=== PATIENT | male | born 1970 | race Hispanic/Latino ===

== ENCOUNTER 2018-11-08 18:56 | Inpatient (IN) | payer OTHER ==
[~2018-11-08] VITALS: Ht 172.7 cm; Wt 103.9 kg
[2018-11-08] MEDS ORDERED: ENOXAPARIN SODIUM 100 MG/1 ML SQ ONE (20:20)
[2018-11-08 20:21] LABS: BASOPHILS % (AUTO) 0.8 % (0.0-5.0); EOSINOPHILS % (AUTO) 0.9 % (0.0-8.0); LYMPHOCYTES % (AUTO) 37.7 % (21.0-51.0); MEAN CORPUSCULAR HEMOGLOBIN 29.4 pg (27.0-33.0); MEAN CORPUSCULAR HGB CONC 34.4 g/dL (32.0-36.0); MEAN CORPUSCULAR VOLUME 85.4 fL (79-99); MONOCYTES % (AUTO) 5.1 % (3.0-13.0); NEUTROPHILS % (AUTO) 55.5 % (40.0-77.0); NUCLEATED RED BLOOD CELLS 0.1 % (0.0-0.19); PLATELET COUNT (AUTO) 136 K/uL (130-400); RED BLOOD CELL COUNT(AUTO) 5.15 MIL/uL (4.50-6.20); RED CELL DISTRIBUTION WIDTH 13.4 % (11.0-15.5); WHITE BLOOD COUNT (AUTO) 8.8 K/uL (4.8-10.8)
[2018-11-08 20:22] LABS: APPEARANCE,URINE CLEAR (CLEAR); BILIRUBIN,URINE NEGATIVE (NEGATIVE); COLOR,URINE YELLOW (YELLOW); GLUCOSE, URINE (UA) >=1000 mg/dL (NEGATIVE); KETONES,URINE NEGATIVE (NEGATIVE); LEUKOCYTE ESTERASE ,URINE SMALL (NEGATIVE); NITRATE,URINE NEGATIVE (NEGATIVE); OCCULT BLOOD,URINE TRACE-INTACT (NEGATIVE); PROTEIN,URINE NEGATIVE (NEGATIVE)
[2018-11-08 20:31] LABS: AMPHET/METH SCREEN,URINE NEGATIVE (NEGATIVE); BARBITURATE SCREEN, URINE NEGATIVE (NEGATIVE); BENZODIAZEPINES SCREEN,URINE NEGATIVE (NEGATIVE); CANNABINOID SCREEN,URINE NEGATIVE (NEGATIVE); COCAINE SCREEN,URINE NEGATIVE (NEGATIVE); OPIATE SCREEN,URINE NEGATIVE (NEGATIVE); PHENCYCLIDINE SCREEN,URINE NEGATIVE (NEGATIVE)
[2018-11-08 20:33] LABS: INR 0.89 (0.85-1.15); PARTIAL THROMBOPLASTIN TIME 24.8 SEC (26.3-35.5); PROTHROMBIN TIME 9.4 SEC (9.6-11.6)
[2018-11-08 20:39] LABS: CARBON DIOXIDE 24 mmol/L (21-32); CHLORIDE 104 mmol/L (101-111); CREATININE 0.9 mg/dL (0.5-1.5); GLOMERULAR FILTR. RATE CALC 96 mL/min (>60); GLUCOSE,RANDOM 280 mg/dL (70-105); POTASSIUM 4.3 mmol/L (3.5-5.1); SODIUM SERUM 137 mmol/L (136-145); UREA NITROGEN, BLOOD 15 mg/dL (7-18)
[2018-11-08 20:41] LABS: BACTERIA,URINE Rare /HPF (None Seen); SQUAMOUS EPITHELIAL CELL,UR Few /HPF (0-2)
[2018-11-08 20:43] LABS: ALANINE AMINOTRANSFERASE 49 U/L (12-78); ALBUMIN 3.4 g/dL (3.5-5.0); ASPARTATE AMINOTRANSFERASE 40 U/L (10-37); BILIRUBIN,DIRECT < 0.1 mg/dL (0.0-0.3); BILIRUBIN,TOTAL 0.5 mg/dL (0.2-1.0); CREATINE KINASE, TOTAL 108 U/L (21-232); TOTAL PROTEIN, SERUM 6.7 g/dL (6.0-8.3)
[2018-11-08 20:53] LABS: B-TYPE NATRIURETIC PEPTIDE 15 pg/mL (0-100)
[2018-11-08] MEDS ORDERED: IOHEXOL 350 MG/ML 100ML INFUS..BTL IV ONE (21:02)
[2018-11-08] MEDS ORDERED: ACETAMINOPHEN 325 MG TAB PO PRN ×2 (23:15)
[2018-11-08] MEDS ORDERED: DEXTROSE 50%-WATER 50 ML DISP.SYRIN IV PRN (23:15)
[2018-11-08] MEDS: SODIUM CHLORIDE 0.9% 1000ML 1,000 ML IV SCH (23:15)
[2018-11-08] MEDS ORDERED: ONDANSETRON HCL 4 MG/2 ML VIAL IV PRN (23:15)
[2018-11-08] MEDS ORDERED: NITROGLYCERIN 0.4 MG SL TAB SL PRN (23:15)
[2018-11-08] MEDS ORDERED: GLUCAGON 1MG KIT 1 MG ML IM PRN (23:15)
[2018-11-08 23:32] LABS: HEMOGLOBIN A1C 10.9 % (4.0-6.0)
[2018-11-09] VITALS (7 sets, daily range): BP systolic 122–145; BP diastolic 69–92
[2018-11-09 04:26] LABS: EOSINOPHILS % (AUTO) 1.1 % (0.0-8.0); HEMATOCRIT 42.4 % (42-54); MEAN CORPUSCULAR HEMOGLOBIN 29.7 pg (27.0-33.0); MEAN CORPUSCULAR HGB CONC 34.8 g/dL (32.0-36.0); MEAN CORPUSCULAR VOLUME 85.4 fL (79-99); MONOCYTES % (AUTO) 4.8 % (3.0-13.0); NEUTROPHILS % (AUTO) 51.1 % (40.0-77.0); NUCLEATED RED BLOOD CELLS 0.1 % (0.0-0.19); PLATELET COUNT (AUTO) 142 K/uL (130-400); RED BLOOD CELL COUNT(AUTO) 4.96 MIL/uL (4.50-6.20); RED CELL DISTRIBUTION WIDTH 13.6 % (11.0-15.5); WHITE BLOOD COUNT (AUTO) 8.2 K/uL (4.8-10.8)
[2018-11-09 04:51] LABS: BILIRUBIN,TOTAL 0.6 mg/dL (0.2-1.0); CARBON DIOXIDE 25 mmol/L (21-32); CHLORIDE 103 mmol/L (101-111); CHOLESTEROL 177 mg/dL (<200); CREATINE KINASE, TOTAL 69 U/L (21-232); CREATININE 0.9 mg/dL (0.5-1.5); GLOMERULAR FILTR. RATE CALC 96 mL/min (>60); GLUCOSE,RANDOM 261 mg/dL (70-105); HDL CHOLESTEROL 20 mg/dL (29-71); LDL DIRECT 99 mg/dL (0-99); MYOGLOBIN 27 ng/mL (10-92); POTASSIUM 4.1 mmol/L (3.5-5.1); SODIUM SERUM 138 mmol/L (136-145); TRIGLYCERIDES 912 mg/dL (30-200); TROPONIN I < 0.04 ng/mL (0.00-0.06); UREA NITROGEN, BLOOD 13 mg/dL (7-18)
[2018-11-09 07:01] LABS: ALANINE AMINOTRANSFERASE 44 U/L (12-78); ASPARTATE AMINOTRANSFERASE 31 U/L (10-37); TOTAL PROTEIN, SERUM 6.6 g/dL (6.0-8.3)
[2018-11-09] MEDS: INSULIN HUMULIN R 100 UNIT/ML 3ML SQ SCH ×3 (07:30→21:06)
[2018-11-09] MEDS: ASPIRIN 325 MG TABLET PO SCH (09:32)
[2018-11-09] MEDS: METOPROLOL TARTRATE 25 MG TAB PO SCH ×2 (09:32→19:39)
[2018-11-09] MEDS: FAMOTIDINE 20MG TAB 20 MG TAB PO SCH ×2 (09:32→19:39)
[2018-11-09] MEDS: ENOXAPARIN SODIUM 100 MG/1 ML SQ SCH ×2 (09:33→21:06)
[2018-11-09 13:07] LABS: CREATINE KINASE, TOTAL 60 U/L (21-232); MYOGLOBIN 27 ng/mL (10-92); TROPONIN I < 0.04 ng/mL (0.00-0.06)
--- NOTE | 2018-11-09 15:58 | NUR ---
cm note met with patient and states resides at home with spouse, and children, pt independent with ambulation and adls. [facility] goes to see ray an for md mendez and also gets his meds at [facility]. informed pt of local low income clinics in the area, and rx assist if needed. pt verbalizes understanding. dc plan is back to home. [facility] no dc needs. has spoken to [employer] for possible medicaid. Addendum: 11/09/18 at 1604 by ROYCE RUBI CM Amended: Links added.
[2018-11-09] MEDS ORDERED: GLYB2.5T5 PO (19:37)
[2018-11-09] MEDS ORDERED: METF-446 PO (19:37)
[2018-11-09] MEDS: SODIUM CHLORIDE 0.9% 1000ML 1,000 ML IV SCH (23:15)
[2018-11-10 03:13] VITALS: BP 114/80
[2018-11-10 04:27] LABS: BASOPHILS % (AUTO) 0.9 % (0.0-5.0); EOSINOPHILS % (AUTO) 1.4 % (0.0-8.0); HEMATOCRIT 44.7 % (42-54); LYMPHOCYTES % (AUTO) 40.1 % (21.0-51.0); MEAN CORPUSCULAR VOLUME 85.4 fL (79-99); NEUTROPHILS % (AUTO) 50.6 % (40.0-77.0); NUCLEATED RED BLOOD CELLS 0.2 % (0.0-0.19); PLATELET COUNT (AUTO) 122 K/uL (130-400); RED BLOOD CELL COUNT(AUTO) 5.23 MIL/uL (4.50-6.20); RED CELL DISTRIBUTION WIDTH 13.3 % (11.0-15.5); WHITE BLOOD COUNT (AUTO) 6.8 K/uL (4.8-10.8)
[2018-11-10 04:45] LABS: INR 0.94 (0.85-1.15); PARTIAL THROMBOPLASTIN TIME 29.6 SEC (26.3-35.5); PROTHROMBIN TIME 9.9 SEC (9.6-11.6)
[2018-11-10 04:52] LABS: CREATININE 0.8 mg/dL (0.5-1.5); POTASSIUM 3.7 mmol/L (3.5-5.1)
[2018-11-10] MEDS: INSULIN HUMULIN R 100 UNIT/ML 3ML SQ SCH ×4 (06:46→20:37)
[2018-11-10 07:30] VITALS: BP 111/82
[2018-11-10] MEDS ORDERED: GLYBURIDE 2.5 MG PO SCH (07:30)
--- NOTE | 2018-11-10 08:15 | NUR ---
DR. GARCIA AND DR. CHARU GARCIA AND DR. BOX PAGED REGARDING CONSULT.
[2018-11-10] MEDS: ASPIRIN 325 MG TABLET PO SCH (08:27)
[2018-11-10] MEDS: FAMOTIDINE 20MG TAB 20 MG TAB PO SCH ×2 (08:28→20:37)
[2018-11-10] MEDS: METFORMIN HCL 500 MG TABLET PO SCH ×2 (08:28→16:38)
[2018-11-10] MEDS: ENOXAPARIN SODIUM 100 MG/1 ML SQ SCH ×2 (08:28→20:36)
[2018-11-10] MEDS: METOPROLOL TARTRATE 25 MG TAB PO SCH ×2 (09:00→20:37)
--- NOTE | 2018-11-10 09:00 | NUR ---
DR. BOX SPOKE TO MD VIA TELEPHONE REGARDING CONSULT. MD GAVE RECOMMENDATIONS, REFER TO NURSING COMMUNICATION ORDER PLACED.
[2018-11-10 11:00] VITALS: BP 133/88
[2018-11-10 16:00] VITALS: BP 116/77
[2018-11-10] MEDS: GLYBURIDE 2.5 MG TAB PO SCH (16:30)
[2018-11-10 19:57] VITALS: BP 116/74
[2018-11-10] MEDS: APIXABAN 5 MG TABLET PO SCH (20:36)
[2018-11-10 23:26] VITALS: BP 105/61
[2018-11-11 04:00] VITALS: BP 108/78
[2018-11-11] MEDS: GLYBURIDE 2.5 MG TAB PO SCH (06:45)
[2018-11-11] MEDS: INSULIN HUMULIN R 100 UNIT/ML 3ML SQ SCH ×2 (07:08→12:49)
[2018-11-11 08:04] VITALS: BP 119/79
--- NOTE | 2018-11-11 08:40 | NUR ---
Dr Foster, rounded and he wrote discharge orders, coupons for the Eliquis provided to patient.
[2018-11-11] MEDS: METFORMIN HCL 500 MG TABLET PO SCH (09:41)
[2018-11-11] MEDS: ASPIRIN 325 MG TABLET PO SCH (09:41)
[2018-11-11] MEDS: METOPROLOL TARTRATE 25 MG TAB PO SCH (09:41)
[2018-11-11] MEDS: APIXABAN 5 MG TABLET PO SCH (09:41)
[2018-11-11] MEDS: FAMOTIDINE 20MG TAB 20 MG TAB PO SCH (09:41)
[2018-11-11 11:42] VITALS: BP 133/78
--- NOTE | 2018-11-11 11:44 | NUR ---
COUPONS FOR [facility] TO MD DR. JAVED CHOUDHARY RN, EXPECT DC TODAY. Addendum: 11/11/18 at 1145 by LUCAS LUNA RN Amended: Links added.
--- NOTE | 2018-11-11 13:40 | NUR ---
Discharge instructions given to patient on Eliquis and Pepcid and follow up with appointments with Dr Molina and with PCP. Pt has the Eliquis coupons with him.
== END 2018-11-11 13:45 | disposition home or self-care (01) | DRG 301 ==
LOC: EDH 18:56 → EDHIP 18:57 → UNDOADMIN 22:44 → EDHIP 22:44 → 4AH 23:53
PROVIDERS: ADMIT Hospitalist; ATTEND Hospitalist
DX: I82.431 Acute embolism and thrombosis of right popliteal vein (principal); E11.65 Type 2 diabetes mellitus with hyperglycemia; E66.9 Obesity, unspecified; E78.00 Pure hypercholesterolemia, unspecified; F17.210 Nicotine dependence, cigarettes, uncomplicated; I10 Essential (primary) hypertension; K76.0 Fatty (change of) liver, not elsewhere classified; Z68.34 Body mass index [BMI] 34.0-34.9, adult; Z86.718 Personal history of other venous thrombosis and embolism; Z80.0 Family history of malignant neoplasm of digestive organs; Z83.3 Family history of diabetes mellitus; Z82.49 Family history of ischemic heart disease and other diseases of the circulatory system
CPT/HCPCS: 36415; 71275; 80048; 80053; 80061; 80076; 80305; 81001; 81241; 82550; 82948; 83036; 83090; 83874; 83880; 84484; 85025; 85378; 85610; 85730; 86147; 93005; 93971; G0378; J1650; J1815; Q9967